=== PATIENT | male | born 1975 | race Caucasian/White ===

== ENCOUNTER 2025-06-22 14:25 | Inpatient (IN) | payer MEDICARE ==
[2025-06-22] MEDS ORDERED: Sodium Chloride 0.9% 2.5 ML Syringe FLUSH PRN (14:53)
[2025-06-22] MEDS ORDERED: Sodium Chloride 0.9% 10 ML Syringe FLUSH PRN (14:53)
[2025-06-22] MEDS ORDERED: PHENobarbital Sodium 130 MG/ML SDV IVPUSH PRN (15:28)
[2025-06-22 15:33] LABS: APPEARANCE,URINE CLEAR; GLUCOSE,URINE >=1000 mg/dL (NEGATIVE); OCCULT BLOOD,URINE NEGATIVE (NEGATIVE)
[2025-06-22 15:36] LABS: CREATININE,URINE RAND 12.0 mg/dL
[2025-06-22] MEDS ORDERED: 50% Dextrose in Water 50 ML Syringe IVPUSH PRN (15:37)
[2025-06-22 15:48] LABS: INR 0.91 (0.86-1.11)
[2025-06-22 15:56] LABS: BLOOD UREA NITROGEN,BUN 1.0 mg/dL (7.0-18.0); CARBON DIOXIDE,CO2 29.3 mmol/L (21.0-32.0); CHLORIDE,CL 83.0 mmol/L (98-107); CREATININE 0.8 mg/dL (0.8-1.3); EST CRCL DRUG DOSING (CG) 119.9 mL/min; ETHANOL BLOOD MEDICAL 187.0 mg/dL; GLUCOSE RANDOM 192.0 mg/dL (74-106); PHOSPHORUS 2.3 mg/dL (2.6-4.7); POTASSIUM,K 3.3 mmol/L (3.5-5.1); SODIUM,NA 121.0 mmol/L (136-148)
[2025-06-22 15:58] LABS: ESTIMATED GFR 107.0 mL/min (>60); LACTIC ACID 4.1 mmol/L (0.4-2.0)
[2025-06-22] MEDS: Ondansetron 4 MG/2 ML SDV IVPUSH PRN (16:31)
[2025-06-22] MEDS: Thiamine 200 MG/2 ML MDV IVPUSH SCH (16:32)
[2025-06-22] MEDS: SODIUM CHLORIDE 0.9% IV ONE (16:42)
[2025-06-22] MEDS: PHENOBARBITAL SODIUM IV ONE (16:42)
[2025-06-22] MEDS: Pantoprazole 40 MG in Sodium Chloride 0.9% 10 ML IVPUSH SCH (16:52)
[2025-06-22] MEDS: Phosphorus #1 250 MG Tab PO SCH (17:41)
[2025-06-22] MEDS: Potassium Chloride 20 MEQ Tab.ER PO ONE (17:41)
[2025-06-22 19:54] LABS: BLOOD UREA NITROGEN,BUN 2.0 mg/dL (7.0-18.0); CARBON DIOXIDE,CO2 26.1 mmol/L (21.0-32.0); CHLORIDE,CL 86.0 mmol/L (98-107); CREATININE 0.7 mg/dL (0.8-1.3); EST CRCL DRUG DOSING (CG) 137.03 mL/min; ESTIMATED GFR 112.0 mL/min (>60); GLUCOSE RANDOM 213.0 mg/dL (74-106); POTASSIUM,K 3.2 mmol/L (3.5-5.1); SODIUM,NA 123.0 mmol/L (136-148)
[2025-06-22] MEDS: Potassium Chloride 10% 20 MEQ/15 ML Soln 15 ML UD Cup PO ONE (20:45)
[2025-06-22] MEDS: guaiFENesin 100 MG/5 ML Soln 5 ML UD Cup PO PRN (21:14)
[2025-06-22 23:19] LABS: BLOOD UREA NITROGEN,BUN 1.0 mg/dL (7.0-18.0); CARBON DIOXIDE,CO2 29.3 mmol/L (21.0-32.0); CHLORIDE,CL 88.0 mmol/L (98-107); CREATININE 0.9 mg/dL (0.8-1.3); EST CRCL DRUG DOSING (CG) 106.58 mL/min; GLUCOSE RANDOM 210.0 mg/dL (74-106); POTASSIUM,K 4.3 mmol/L (3.5-5.1); SODIUM,NA 122.0 mmol/L (136-148)
[2025-06-22 23:25] LABS: ESTIMATED GFR 103.0 mL/min (>60)
[2025-06-23] MEDS: guaiFENesin/Dextromethorphan 100-10 MG/5 ML Soln 10 ML Cup PO PRN (00:38)
[2025-06-23 03:31] LABS: BLOOD UREA NITROGEN,BUN 4.0 mg/dL (7.0-18.0); CARBON DIOXIDE,CO2 28.6 mmol/L (21.0-32.0); CHLORIDE,CL 87.0 mmol/L (98-107); CREATININE 1.0 mg/dL (0.8-1.3); EST CRCL DRUG DOSING (CG) 95.92 mL/min; ESTIMATED GFR 91.0 mL/min (>60); GLUCOSE RANDOM 210.0 mg/dL (74-106); POTASSIUM,K 4.2 mmol/L (3.5-5.1); SODIUM,NA 123.0 mmol/L (136-148)
[2025-06-23 07:24] LABS: BASOPHILS ABSOLUTE AUTO 0.04 K/uL (0.00-0.20); BASOPHILS PERCENT AUTO 0.5 % (0.0-1.0); EOSINOPHILS ABSOLUTE AUTO 0.05 K/uL (0.00-0.45); EOSINOPHILS PERCENT AUTO 0.7 % (0.0-6.0); IMMATURE GRAN ABSOLUTE AUTO 0.02 K/uL (0.00-0.05); IMMATURE GRAN PERCENT AUTO 0.3 % (0.0-0.4); LYMPHOCYTES ABSOLUTE AUTO 0.93 K/uL (1.00-4.80); LYMPHOCYTES PERCENT AUTO 12.1 % (24.0-44.0); MEAN PLATELET VOLUME 8.7 fL (9.4-12.4); MONOCYTES ABSOLUTE AUTO 0.62 K/uL (0.00-0.80); MONOCYTES PERCENT AUTO 8.1 % (0.0-8.0); NEUTROPHILS ABSOLUTE AUTO 6.03 K/uL (1.80-7.70); NEUTROPHILS PERCENT AUTO 78.3 % (41.0-71.0); NRBC ABSOLUTE 0.00 K/uL (0.00-0.02); NRBC PERCENT 0.0 /100WBC (0.0-0.2); PLATELET COUNT,PLT 159 K/uL (150-400); RED BLOOD CELL COUNT 4.37 M/uL (4.52-5.90); WHITE BLOOD CELL COUNT,WBC 7.69 K/uL (3.9-11.3)
[2025-06-23 07:40] LABS: BLOOD UREA NITROGEN,BUN 3.0 mg/dL (7.0-18.0); CARBON DIOXIDE,CO2 30.1 mmol/L (21.0-32.0); CHLORIDE,CL 87.0 mmol/L (98-107); CREATININE 0.8 mg/dL (0.8-1.3); EST CRCL DRUG DOSING (CG) 119.9 mL/min; GLUCOSE RANDOM 219.0 mg/dL (74-106); POTASSIUM,K 3.7 mmol/L (3.5-5.1); SODIUM,NA 122.0 mmol/L (136-148)
[2025-06-23 07:41] LABS: ESTIMATED GFR 107.0 mL/min (>60)
[2025-06-23 12:05] LABS: BLOOD UREA NITROGEN,BUN 4.0 mg/dL (7.0-18.0); CARBON DIOXIDE,CO2 29.3 mmol/L (21.0-32.0); CHLORIDE,CL 86.0 mmol/L (98-107); CREATININE 0.9 mg/dL (0.8-1.3); EST CRCL DRUG DOSING (CG) 106.58 mL/min; GLUCOSE RANDOM 219.0 mg/dL (74-106); POTASSIUM,K 3.8 mmol/L (3.5-5.1); SODIUM,NA 122.0 mmol/L (136-148)
[2025-06-23 12:13] LABS: ESTIMATED GFR 103.0 mL/min (>60)
[2025-06-23 15:27] LABS: BLOOD UREA NITROGEN,BUN 5.0 mg/dL (7.0-18.0); CARBON DIOXIDE,CO2 27.3 mmol/L (21.0-32.0); CHLORIDE,CL 86.0 mmol/L (98-107); CREATININE 0.9 mg/dL (0.8-1.3); EST CRCL DRUG DOSING (CG) 106.58 mL/min; GLUCOSE RANDOM 200.0 mg/dL (74-106); POTASSIUM,K 3.6 mmol/L (3.5-5.1)
[2025-06-23 15:32] LABS: ESTIMATED GFR 103.0 mL/min (>60); SODIUM,NA 120.0 mmol/L (136-148)
[2025-06-23 19:50] LABS: BLOOD UREA NITROGEN,BUN 4.0 mg/dL (7.0-18.0); CARBON DIOXIDE,CO2 27.5 mmol/L (21.0-32.0); CHLORIDE,CL 84.0 mmol/L (98-107); CREATININE 0.9 mg/dL (0.8-1.3); EST CRCL DRUG DOSING (CG) 106.58 mL/min; GLUCOSE RANDOM 157.0 mg/dL (74-106); POTASSIUM,K 3.7 mmol/L (3.5-5.1); SODIUM,NA 121.0 mmol/L (136-148)
[2025-06-23 19:54] LABS: ESTIMATED GFR 103.0 mL/min (>60)
[2025-06-23 23:19] LABS: BLOOD UREA NITROGEN,BUN 4.0 mg/dL (7.0-18.0); CARBON DIOXIDE,CO2 30.1 mmol/L (21.0-32.0); CHLORIDE,CL 87.0 mmol/L (98-107); CREATININE 0.9 mg/dL (0.8-1.3); EST CRCL DRUG DOSING (CG) 106.58 mL/min; GLUCOSE RANDOM 233.0 mg/dL (74-106); POTASSIUM,K 3.5 mmol/L (3.5-5.1)
[2025-06-23 23:23] LABS: ESTIMATED GFR 103.0 mL/min (>60); SODIUM,NA 120.0 mmol/L (136-148)
[2025-06-24 05:34] LABS: BASOPHILS ABSOLUTE AUTO 0.05 K/uL (0.00-0.20); BASOPHILS PERCENT AUTO 1.1 % (0.0-1.0); EOSINOPHILS ABSOLUTE AUTO 0.15 K/uL (0.00-0.45); EOSINOPHILS PERCENT AUTO 3.4 % (0.0-6.0); IMMATURE GRAN ABSOLUTE AUTO 0.01 K/uL (0.00-0.05); IMMATURE GRAN PERCENT AUTO 0.2 % (0.0-0.4); LYMPHOCYTES ABSOLUTE AUTO 1.08 K/uL (1.00-4.80); LYMPHOCYTES PERCENT AUTO 24.8 % (24.0-44.0); MEAN PLATELET VOLUME 9.3 fL (9.4-12.4); MONOCYTES ABSOLUTE AUTO 0.37 K/uL (0.00-0.80); MONOCYTES PERCENT AUTO 8.5 % (0.0-8.0); NEUTROPHILS ABSOLUTE AUTO 2.70 K/uL (1.80-7.70); NEUTROPHILS PERCENT AUTO 62.0 % (41.0-71.0); NRBC ABSOLUTE 0.00 K/uL (0.00-0.02); NRBC PERCENT 0.0 /100WBC (0.0-0.2); PLATELET COUNT,PLT 174 K/uL (150-400); RED BLOOD CELL COUNT 4.83 M/uL (4.52-5.90); WHITE BLOOD CELL COUNT,WBC 4.36 K/uL (3.9-11.3)
[2025-06-24 06:02] LABS: BLOOD UREA NITROGEN,BUN 3.0 mg/dL (7.0-18.0); CARBON DIOXIDE,CO2 29.8 mmol/L (21.0-32.0); CHLORIDE,CL 95.0 mmol/L (98-107); CREATININE 0.9 mg/dL (0.8-1.3); EST CRCL DRUG DOSING (CG) 106.58 mL/min; GLUCOSE RANDOM 206.0 mg/dL (74-106); POTASSIUM,K 3.6 mmol/L (3.5-5.1); SODIUM,NA 132.0 mmol/L (136-148)
[2025-06-24 06:12] LABS: ESTIMATED GFR 103.0 mL/min (>60)
[2025-06-24 07:17] LABS: BLOOD UREA NITROGEN,BUN 3.0 mg/dL (7.0-18.0); CARBON DIOXIDE,CO2 31.1 mmol/L (21.0-32.0); CHLORIDE,CL 92.0 mmol/L (98-107); CREATININE 0.9 mg/dL (0.8-1.3); EST CRCL DRUG DOSING (CG) 106.58 mL/min; GLUCOSE RANDOM 218.0 mg/dL (74-106); PHOSPHORUS 4.0 mg/dL (2.6-4.7); POTASSIUM,K 4.6 mmol/L (3.5-5.1); SODIUM,NA 129.0 mmol/L (136-148)
[2025-06-24 07:28] LABS: ESTIMATED GFR 103.0 mL/min (>60)
[2025-06-24 11:36] LABS: BLOOD UREA NITROGEN,BUN 5.0 mg/dL (7.0-18.0); CARBON DIOXIDE,CO2 31.5 mmol/L (21.0-32.0); CHLORIDE,CL 94.0 mmol/L (98-107); CREATININE 0.9 mg/dL (0.8-1.3); EST CRCL DRUG DOSING (CG) 106.58 mL/min; ESTIMATED GFR 103.0 mL/min (>60); GLUCOSE RANDOM 166.0 mg/dL (74-106); POTASSIUM,K 3.7 mmol/L (3.5-5.1); SODIUM,NA 132.0 mmol/L (136-148)
== END 2025-06-24 13:40 | disposition home or self-care (01) | DRG 897 ==
LOC: MW.ICU 14:25 → MW.MS 06-24 11:24
PROVIDERS: ADMIT Internal Medicine; ATTEND Internal Medicine
PROC: HZ2ZZZZ Detoxification Services for Substance Abuse Treatment (ICD-10-PCS; principal; 2025-06-22)
DX: F10.139 Alcohol abuse with withdrawal, unspecified (principal); E87.1 Hypo-osmolality and hyponatremia; Z59.00 Homelessness unspecified; E11.65 Type 2 diabetes mellitus with hyperglycemia; F17.200 Nicotine dependence, unspecified, uncomplicated; R07.9 Chest pain, unspecified; I11.0 Hypertensive heart disease with heart failure; I50.9 Heart failure, unspecified; J45.909 Unspecified asthma, uncomplicated; K21.9 Gastro-esophageal reflux disease without esophagitis; F31.9 Bipolar disorder, unspecified; F41.9 Anxiety disorder, unspecified; I25.2 Old myocardial infarction; Z79.899 Other long term (current) drug therapy; Z88.0 Allergy status to penicillin
CPT/HCPCS: 36415; 80048; 80307; 81003; 82570; 82947; 83605; 83735; 83930; 83935; 84100; 84300; 84484; 85025; 85610; A9270-GY; J1815-GY; J2405; J2470; J2560; J2597; J3411; J3480; J7030; J7070

== ENCOUNTER 2025-06-30 02:03 | Emergency (ER) | payer MEDICARE ==
[2025-06-30 02:27] LABS: BASOPHILS ABSOLUTE AUTO 0.11 K/uL (0.00-0.20); BASOPHILS PERCENT AUTO 2.2 % (0.0-1.0); EOSINOPHILS ABSOLUTE AUTO 0.17 K/uL (0.00-0.45); EOSINOPHILS PERCENT AUTO 3.4 % (0.0-6.0); IMMATURE GRAN ABSOLUTE AUTO 0.02 K/uL (0.00-0.05); IMMATURE GRAN PERCENT AUTO 0.4 % (0.0-0.4); LYMPHOCYTES ABSOLUTE AUTO 2.47 K/uL (1.00-4.80); LYMPHOCYTES PERCENT AUTO 49.7 % (24.0-44.0); MEAN PLATELET VOLUME 8.8 fL (9.4-12.4); MONOCYTES ABSOLUTE AUTO 0.56 K/uL (0.00-0.80); MONOCYTES PERCENT AUTO 11.3 % (0.0-8.0); NEUTROPHILS ABSOLUTE AUTO 1.64 K/uL (1.80-7.70); NEUTROPHILS PERCENT AUTO 33.0 % (41.0-71.0); NRBC ABSOLUTE 0.00 K/uL (0.00-0.02); NRBC PERCENT 0.0 /100WBC (0.0-0.2); PLATELET COUNT,PLT 229 K/uL (150-400); RED BLOOD CELL COUNT 4.19 M/uL (4.52-5.90); WHITE BLOOD CELL COUNT,WBC 4.97 K/uL (3.9-11.3)
[2025-06-30 02:40] LABS: A/G RATIO 0.8 (0.9-1.6); ALANINE AMINOTRANSFERASE,ALT 46.0 IU/L (14-63); ASPARTATE AMNIOTRANSFERASE,AST 37.0 IU/L (15-37); BILIRUBIN TOTAL 0.1 mg/dL (0.2-1.0); BLOOD UREA NITROGEN,BUN 6.0 mg/dL (7.0-18.0); CARBON DIOXIDE,CO2 25.0 mmol/L (21.0-32.0); CHLORIDE,CL 97.0 mmol/L (98-107); CREATININE 0.8 mg/dL (0.8-1.3); EST CRCL DRUG DOSING (CG) 119.9 mL/min; GLUCOSE RANDOM 181.0 mg/dL (74-106); POTASSIUM,K 4.2 mmol/L (3.5-5.1); PROTEIN TOTAL,TP 6.3 g/dL (6.4-8.2); SODIUM,NA 132.0 mmol/L (136-148)
[2025-06-30 02:41] LABS: ESTIMATED GFR 107.0 mL/min (>60); ETHANOL BLOOD MEDICAL 333.0 mg/dL
== END 2025-06-30 03:33 | disposition home or self-care (01) ==
LOC: MW.ED 02:03
DX: F10.129 Alcohol abuse with intoxication, unspecified (principal); Z88.0 Allergy status to penicillin; Z91.013 Allergy to seafood; Z79.899 Other long term (current) drug therapy
CPT/HCPCS: 36415; 80053; 80307; 85025; 93005; 96360; 99285; J7030; 93010; 99284